=== PATIENT | female | born 1945 ===

== ENCOUNTER 2018-09-21 05:45 | Day surgery (SDC) | payer MEDICARE ==
[2018-09-21 06:43] VITALS: BMI 33.2
[2018-09-21] MEDS ORDERED: Propofol 10 mg/ml Inj (20 ML) ONE (07:46)
[2018-09-21] MEDS ORDERED: ePHEDrine 50 mg/ml Inj ONE (07:53)
[2018-09-21] MEDS ORDERED: Rocuronium 10 mg/ml (10 ml) ONE (07:53)
[2018-09-21] MEDS ORDERED: Succinylcholine Chloride 20 mg/ml Syr (5 ml) IV ONE (07:53)
[2018-09-21] MEDS ORDERED: Phenylephrine 10 mg/ml Inj ONE (07:53)
[2018-09-21] MEDS ORDERED: Lidocaine/Epinephrine 1% 1:100000 10 ML IJ ONE (07:59)
[2018-09-21] MEDS ORDERED: ceFAZolin 1 gm in NS 1 GM/100 ML BAG IVPB ONE (07:59)
[2018-09-21] MEDS ORDERED: Clindamycin 600mg/50ml NS 600 MG/50 ML BAG IVPB ONE (08:33)
[2018-09-21] MEDS ORDERED: EPINEPHrine- 1.5 MG in Sodium Chloride 0.9% Irrig 3,000 ML IV SCH (09:00)
[2018-09-21] MEDS ORDERED: Neostigmine 1:1000 (1 mg/ml) Inj ONE (09:48)
[2018-09-21] MEDS: HYDROmorphone 0.5 mg/0.5 ml ISec IVP PRN ×2 (10:45→11:03)
[2018-09-21] MEDS ORDERED: HYDROmorphone 0.5 mg/0.5 ml ISec ONE (10:48)
[2018-09-21] MEDS ORDERED: Oxycodone/Acetaminophen 5/325 mg Tab PO PRN ×2 (11:05→11:06)
[2018-09-21 11:26] VITALS: O2SAT 100
[2018-09-21] MEDS ORDERED: Ropivacaine 0.5% PF (20 ml) inj INJ ONE (11:41)
--- NOTE | 2018-09-21 12:45 | PCM.ANESB1 ---
Interscalene Block - Brachial Plexus Date of Procedure: 09/21/18 Pre-Procedure Diagnosis: acute postoperative pain Post-Procedure Diagnosis: acute postoperative pain Procedure Performed: Interscalene Block of Brachial Plexus Right - Procedure Interscalene Block of Brachial Plexus: This procedure was explained to the patient that it is for post-operative pain management. Consent was obtained after a thorough discussion with the patient regarding the benefits and possible complications of local anesthetic block of the Brachial Plexus at the Interscalene area. The patient was brought to the Operating Room and standard monitors were applied. Time out was held with the circulating nurse to confirm the correct surgery and appropriate block. After applying Oxygen by nasal cannula and administering IV Sedation, the patient's head was gently rotated away from the RIGHT_operative shoulder and the anterior scalene groove was carefully palpated. The ultrasound transducer was then applied to the skin in the transverse plane and the brachial plexus was visualized lateral to the carotid artery and in between the anterior and middle scalene muscles. After identification,the anterior lateral portion of the neck was prepped with chloraprep and Lidocaine 1% was injected subcutaneously for topical analgesia. At this point, a # 22 gauge Stimuplex 2 inches insulated needle was inserted into the interscalene groove and directed in a caudal and midline direction. The needle was inserted lateral to the ultrasound transducer in-plane towards the brachial plexus in a [id number] direction. Needle advancement was performed carefully under direct ultrasound visualization. Nerve stimulator was used and twitched of the affected extremity including the hand brachialis muscles, biceps and the deltoid was obtained at a current of ____0.8_MA, lost at 0.4MA. After repeated negative aspiration,_5cc of_0.5% ropivicaine were injected and this was followed with _10_cc of _0.5_% ropivicaine. Under ultrasound guidance the local anesthetics were observed surrounding the roots of the brachial plexus. The needle was removed intact and sterile dressing was applied. The patient had stable vital signs, was conscious and in no apparent distress. The patient tolerated the interscalene block of the bracheal plexus well with stable vital signs, was awake throughout for feedback, no paresthesias no pain, careful to avoid nerve contact, patient did well, no complaints.
[2018-09-21 13:10] VITALS: BP 144/66; PULSE 80; RESP 18; TEMP 98
--- NOTE | 2018-09-22 02:49 | OP ---
PROCEDURE DATE: 09/21/2018 SURGEON: Niko Ahumada MD MANAGER CONTACT: VIGNESH Logan. PREOPERATIVE DIAGNOSES: 1. Right shoulder full thickness rotator cuff supraspinatus tendon tear. 2. Right shoulder adhesive capsulitis. 3. Impingement syndrome with subacromial spur. 4. Long head of the biceps tear. 5. Right fourth digit stenosing flexor tenosynovitis. POSTOPERATIVE DIAGNOSES: 1. Right shoulder full thickness rotator cuff supraspinatus tendon tear. 2. Right shoulder adhesive capsulitis. 3. Impingement syndrome with subacromial spur. 4. Long head of the biceps tear. 5. Right fourth digit stenosing flexor tenosynovitis. PROCEDURE: 1. Arthroscopic right shoulder rotator cuff repair using double-row suture bridge technique; 97050. 2. Arthroscopic resection of long tendon of the biceps; 32480. 3. Arthroscopic lysis of adhesions with manipulation; 64808. 4. Arthroscopic right shoulder extensive debridement; 48693. 5. Arthroscopic right shoulder synovectomy; 67767. 6. Arthroscopic subacromial decompression with partial acromioplasty of right shoulder. 7. Right ring finger A1 simi sheave release with local tenosynovectomy; 60139. ANESTHESIA: General with postoperative block. BLOOD LOSS: 10 mL. SPECIMENS: None. COMPLICATIONS: None. INDICATIONS: After failing a course of nonoperative therapy, the patient elected to undergo the above procedures. In the office the risks and possible complications of the shoulder arthroscopy were discussed in detail with the patient. These risks include, but are not limited to continued pain, lack of motion, infection, vascular injury, and nerve injury including axillary nerve dysfunction, reflex sympathetic dystrophy, compartment syndrome, limb loss, and . The patient expressed an understanding of the risks and possible benefits of the procedure and was also made aware of the alternatives to surgery. An informed consent was obtained, and was checked immediately preop. PROCEDURE 1: The patient was correctly identified in the holding area, and the right shoulder was marked with the surgeon's initials. The patient was transported to the operating room and placed in the supine position and general anesthesia was obtained. A preoperative orthopedic examination revealed a passive range of motion of 160 degrees of forward elevation, 75 degrees of external rotation, and 160 degrees of abduction. Stability examination revealed no instability. PROCEDURE 2: The patient was then placed in a beach chair position utilizing the beach chair positioning device. The patient's head was stabilized, and the indicated upper extremity was prepped and draped in the standard surgical fashion. The anatomic structures were outlined with a skin marker, and 1% lidocaine with epinephrine was injected into the posterior, anterior, and lateral portal areas. A #21-gauge spinal needle was placed in the glenohumeral joint from the posterior portal, and 10 mL of sterile saline was injected into the glenohumeral joint. Return of fluid indicated correct needle placement into the joint. The needle was then withdrawn, and a #11 blade was used to make a 1-cm incision at the posterior portal site. Next, the arthroscopic blunt trocar was inserted into the glenohumeral joint. A #21-gauge spinal needle was placed through the anterior rotator interval, and the anterior portal was made with a #11 blade after the spinal needle was withdrawn. A 7-mm cannula was then inserted after the skin incision was made, and the arthroscopic probe was then used to examine the internal structures of the glenohumeral joint. With the shoulder abducted and externally rotated position, the articular surface of the rotator cuff was visualized. The arthroscope and probe were then switched from posterior to anterior. The posterior labrum, posterior capsule, and biceps anchor reflection was then inspected with the arthroscope in the anterior portal position. Examination of the glenohumeral joint revealed: 1. Partial tear of biceps tendon. 2. Full-thickness supraspinatus tendon tear with retraction. 3. Extensive glenohumeral synovitis. 4. Glenohumeral chondromalacia type 2. 5. Adhesive capsulitis. The radiofrequency device was introduced through the anterior portal, and a radiofrequency anterior capsular rotator interval lysis of adhesions was performed. The anterior capsule was released to optimize range of motion. The radiofrequency device was used to provide hemostasis during this procedure. After the lysis of adhesions, passive range of motion measured 170 degrees of forward elevation, 90 degrees of external rotation, and 170 degrees of abduction. The full radius shaver was used to mechanically debride loose chondral edges of the labrum to a stable border. Extreme care was taken to not disrupt the adjacent chondral surface. The edge of the debrided area was probed to ensure chondral stability. Upon careful arthroscopic evaluation of biceps tendon and its anchor site at the labrum, it was noted to be highly frayed and tears not amenable to repair. Due to tissue quality and patient's age, decision was made to proceed with biceps tenotomy. Using arthroscopic scissors, biceps tenotomy was successfully performed. The loose edges of labrum were debrided using radiofrequency probe and arthroscopic shaver. Excessive glenohumeral synovitis was cleared with a 4.0 mm full radius shaver. The hypertrophic, erythematous synovium was resected. Hemostasis was maintained with the radiofrequency device. At this point, the arthroscope was withdrawn from the glenohumeral joint, and subacromial space was then entered using a blunt trocar. Gentle resistance sweeping against the coracoacromial ligament confirmed proper placement of the sheath, and the arthroscope was inserted. A 1-cm incision was made at the inferolateral acromial area to create the lateral portal. Examination of the subacromial space revealed: 1. Subacromial spur. 2. Bursitis. 3. Full thickness supraspinatus tendon tear. Visualization of the subacromial space was difficult due to excessive bursitis. A bursectomy was performed using a combination of radiofrequency device as well as a 4.0-mm full radius motorized shaver. The soft tissue on the undersurface of the acromion was debrided utilizing the 4.0-mm full radius shaver, and the radiofrequency device was used for hemostasis. At this point, the coraco-acromial ligament was released with the radiofrequency device, and the acromial branch of the thoraco-acromial artery was coagulated with the same instrument. Sub-acromial decompression was performed with a 4.0-mm conical arash using both the medial portal and the "cutting-block" precision acromioplasty technique from the posterior portal. The undersurface of the acromion was resected to a flat, smooth surface to allow unrestricted excursion of the rotator cuff. After adequate subacromial decompression, attention was then turned to the crescenteric rotator cuff tear, which was easily visualized after adequate bursectomy had been performed. Arthroscopic soft tissue releases were performed using an elevator at the coracohumeral ligament insertion and superior glenoid to free up the rotator cuff to provide adequate excursion to support a repair to the greater tuberosity. Next, the greater tuberosity was gently debrided with a combination of the 4.0-mm straight shaver and radiofrequency device, and the bone was denuded to a bleeding surface using the 4.0-mm arash. The lateral margin of the rotator cuff tear was debrided to a smooth and stable tendon surface using the 4.0-mm shaver. A Passport silicone cannula was placed in the lateral portal to facilitate the repair. Two #2 FibreWire sutures were placed in a mattress fashion through the lateral edge of the rotator cuff 6 mm from the lateral margin of the rotator cuff, and the suture limbs were and matched. The anterior limbs from each mattress suture and posterior limbs were then passed through the two 4.5 mm Arthrex Bio-SwiveLock suture anchors respectively. These anchors formed the osseous insertion of the suture bridge repair. The arm was abducted to 70 degrees, and the leading edge of the cuff was drawn to its proper insertion on the greater tuberosity. The two 4.5-mm Arthrex Bio-SwiveLock suture anchors were impacted using a proper deadman's angle. The ends of the remaining sutures were then cut. The shoulder was put through a passive ROM, and the rotator cuff repair was noted to be stable through a ROM of 130/50. No prominence of the suture material or of rotator cuff tissue was noted to impinge during abduction and internal rotation. The subacromial space was then irrigated with 300 mL of sterile saline, and closure was instituted with a 3-0 Monocryl suture. A dressing was placed consisting of Xeroform, 4x4's, ABD pads, and silk tape. In addition, an "Ice-Man" automated portable cooling system pad was applied to the shoulder and secured in place. The patient was placed in a sling with an ABD pad in the axilla. Next, the right hand was prepped and draped in standard surgical fashion. With a sterile marking pen, proposed incision was outlined for the ring finger. This was a longitudinal incision over the base of the MCP flexion crease. Incision was made through the skin only. All superficial veins were cauterized. Both neurovascular bundles were identified and carefully protected. A1 simi was then sharply identified. It was noted to be markedly fibrotic. With the scalpel, this simi was completely incised with taking care to observe the A2 simi. The tendon was then lifted from its bed and local tenosynovectomy was performed. The wound was then irrigated. Hemostasis achieved and skin was closed with 4-0 nylon interrupted suture. Sterile fluff dressing was applied. The patient tolerated the procedure well and returned to recovery room in excellent condition. During this procedure, I was assisted by Vamsi Juárez, a licensed physician's development assistant. Mr. Vamsi Juárez assisted in positioning the patient on the operating room table as well as transferring the patient from the operating room table to the recovery room stretcher. In addition, Mr. Vamsi Juárez, assisted me during the actual operative procedure by positioning the patient's extremity to allow for easier arthroscopic access to all areas of the joint. The presence of Mr. Vamsi Juárez as my operative development assistant was medically necessary to ensure the utmost safety of the patient in the pre, intra-, and post-operative periods. Niko Ahumada MD
== END 2018-09-21 14:46 | disposition home or self-care (01) ==
LOC: C.SDS 05:45
PROVIDERS: ATTEND Orthopaedic Surgery
DX: S43.431A Superior glenoid labrum lesion of right shoulder, initial encounter (principal); S46.811A Strain of other muscles, fascia and tendons at shoulder and upper arm level, right arm, initial encounter; M75.01 Adhesive capsulitis of right shoulder; M65.841 Other synovitis and tenosynovitis, right hand; M75.41 Impingement syndrome of right shoulder
CPT/HCPCS: 23440; 26145; 29821; 29823; 29826; 29827; C1713; J1170; J2370; J2405; J2704; J2710; J3010